=== PATIENT | male | born 1990 | race Caucasian/White ===

== ENCOUNTER 2019-09-08 17:26 | Emergency (ER) | payer BC ==
[~2019-09-08] VITALS: Ht 167.6 cm; Wt 87.5 kg
[2019-09-08 17:43] VITALS: Ht 167.6 cm; Wt 87.5 kg
[2019-09-08 19:51] LABS: microscopic required? NO
[2019-09-08 20:04] LABS: urine erythrocyte NEGATIVE (NEGATIVE)
[2019-09-08 20:40] VITALS: BP 128/80
== END 2019-09-08 20:40 | disposition home or self-care (01) ==
LOC: ED 17:26
PROVIDERS: Emergency Medicine
DX: M54.5 Low back pain (principal)
CPT/HCPCS: J1885; Q0162